=== PATIENT | female | born 1985 | race African-American/Black ===

== ENCOUNTER 2017-05-28 21:30 | Inpatient (IN) | payer OTHER ==
[~2017-05-28] VITALS: Ht 167.6 cm; Wt 77.1 kg
[~2017-05-28 21:30] MED LIST: COMBIVIR; HIV MEDS; NORVIR; PREN-385 PO; REYTAZ
[2017-05-28] MEDS ORDERED: LACTATED RINGERS 1,000 ML IV SCH (21:47)
[2017-05-28] MEDS ORDERED: NALBUPHINE 10 MG/ML AMP IVP PRN (21:50)
[2017-05-28] MEDS ORDERED: PROMETHAZINE 25 MG/ML VIAL IVP PRN (21:50)
[2017-05-28 22:00] VITALS: BP 137/85
[2017-05-28] MEDS: TERBUTALINE 1 MG/ML VIAL SUBQ SCH ×2 (22:05→22:43)
[2017-05-28] MEDS ORDERED: TERBUTALINE 1 MG/ML VIAL SUBQ ONE (22:08)
[2017-05-28] MEDS ORDERED: AMPICILLIN 2,000 MG in NACL 0.9% 100 ML IV ONE (22:45)
[2017-05-28 22:50] LABS: HIV RAPID SCREEN REACTIVE (NON REACTIV)
[2017-05-28 22:56] LABS: ALBUMIN 2.4 g/dL (3.4-5.0); CALCIUM 8.1 mg/dL (8.5-10.1); CARBON DIOXIDE 24.5 mmol/L (21-32); CREATININE 0.7 mg/dL (0.6-1.3); TOTAL BILIRUBIN 0.7 mg/dL (0.0-1.0); TOTAL PROTEIN, SERUM 7.3 g/dL (6.4-8.2)
[2017-05-28 23:00] LABS: POTASSIUM 2.5 mmol/L (3.5-5.1)
[2017-05-28 23:04] LABS: BILIRUBIN,URINE 1+ (NEGATIVE); BLOOD, URINE TRACE-I (NEGATIVE); LEUKOCYTE ESTERASE ,URINE NEGATIVE (NEGATIVE); NITRITE, URINE NEGATIVE (NEGATIVE); PROTEIN,URINE TRACE (NEGATIVE); UGLUCOSE NEGATIVE (NEGATIVE); UROBILINOGEN,URINE >=8.0 EU/dL (0.2 - 1)
[2017-05-28 23:10] LABS: AMPHETAMINE, URINE POS. ng/ml (NEG <=1000); BARBITURATE, URINE NEG. ng/ml (NEG <=200); BENZODIAZEPINE, URINE NEG. ng/mL (NEG <=200); CANNABINOID, URINE NEG. ng/mL (NEG <=50); COCAINE, URINE NEG. ng/mL (NEG <=300); OPIATE, URINE NEG. ng/mL (NEG <=2000); PHENCYCLIDINE SCREEN,URINE NEG. ng/mL (NEG <=25)
[2017-05-28] MEDS ORDERED: ceFAZolin 1,000 MG VIAL ONE (23:10)
[2017-05-28 23:18] LABS: APPEARANCE,URINE SLIGHTLY HAZY (CLEAR); COLOR,URINE YELLOW (YELLOW)
[2017-05-28 23:18] LABS: BASOPHILS # (AUTO) 0.1 K/uL (0.00-0.22); BASOPHILS % (AUTO) 1.6 % (0.0-2.0); EOSINOPHILS # (AUTO) 0.4 K/uL (0-0.4); EOSINOPHILS % (AUTO) 3.9 % (0.0-4.0); HEMATOCRIT 32.7 % (36-48); HEMOGLOBIN 10.8 g/dL (12.0-16.0); LYMPHOCYTES # (AUTO) 2.1 K/uL (2.5-16.5); LYMPHOCYTES % (AUTO) 23.7 % (20.5-51.1); MEAN CORPUSCULAR HEMOGLOBIN 30 pg (27-31); MEAN CORPUSCULAR HGB CONC 33 g/dL (33-37); MEAN CORPUSCULAR VOLUME 91 fL (80-94); MONOCYTES # (AUTO) 0.4 K/uL (0.8-1.0); MONOCYTES % (AUTO) 4.8 % (1.7-9.3); NEUTROPHILS # (AUTO) 6.1 K/uL (1.8-7.7); PLATELET COUNT (AUTO) 236 K/uL (140-450); RED BLOOD CELL COUNT(AUTO) 3.58 MIL/uL (4.20-5.40); RED CELL DISTRIBUTION WIDTH 11.5 % (11.6-13.7); WHITE BLOOD COUNT (AUTO) 9.1 K/uL (4.8-10.8)
[2017-05-28 23:23] LABS: BACTERIA,URINE OCCASSIONAL /HPF (None Seen); ICTOTEST NEGATIVE (NEGATIVE); RBC,URINE 0-5 (RARE) /HPF (0-5); WBC,URINE 0-5 (RARE) /HPF (0-5)
[2017-05-28 23:24] LABS: SQUAMOUS EPITHELIAL CELL,UR 0-3 (FEW) /LPF (0-3 (FEW))
[2017-05-28] MEDS ORDERED: KCL 20 MEQ/WATER INJ PREMIX 200 ML IV ONE (23:31)
[2017-05-28] MEDS ORDERED: METOCLOPRAMIDE 10 MG/2 ML INJ VIAL IVP PRN (23:35)
[2017-05-28 23:37] LABS: PARTIAL THROMBOPLASTIN TIME 26.5 secs (22-35.6); PROTHROMBIN TIME 10.4 secs (10.8-13.4)
[2017-05-28] MEDS ORDERED: OXYTOCIN 10 UNITS/ML VIAL ONE (23:38)
[2017-05-28] MEDS ORDERED: METOCLOPRAMIDE 10 MG/2 ML INJ VIAL ONE (23:38)
[2017-05-28] MEDS ORDERED: CITRIC ACID/SODIUM CITRATE 30 ML UDC ONE (23:58)
[2017-05-29] MEDS ORDERED: ceFAZolin 1,000 MG VIAL IVP ONE (00:02)
[2017-05-29] MEDS ORDERED: MIDAZOLAM 2 MG/2 ML VIAL ONE (00:05)
[2017-05-29] MEDS ORDERED: fentaNYL 0.05 MG/ML VIAL ONE (00:05)
[2017-05-29] MEDS ORDERED: KETAMINE 500 MG/5 ML VIAL ONE (00:05)
[2017-05-29] MEDS ORDERED: MORPHINE PRES FREE 10 MG/10 ML AMP IV ONE (00:06)
[2017-05-29] MEDS ORDERED: PREN-546 PO (00:39)
[2017-05-29] MEDS ORDERED: KETOROLAC 30 MG/ML VIAL IVP PRN (00:45)
[2017-05-29] MEDS ORDERED: ONDANSETRON 4 MG/2 ML VIAL IVP PRN (00:45)
[2017-05-29] MEDS ORDERED: diphenhydrAMINE 50 MG/ML VIAL ONE (00:52)
[2017-05-29] MEDS ORDERED: OXYTOCIN 20 UNITS/LR PREMIX 1,000 ML IV ONE ×2 (00:52→01:24)
[2017-05-29] MEDS: diphenhydrAMINE 50 MG/ML VIAL IVP PRN ×2 (01:25→18:15)
[2017-05-29] MEDS ORDERED: MEASLES, MUMPS, AND RUBELLA 1 VIAL SQVAC PRN (01:40)
[2017-05-29] MEDS ORDERED: METHYLERGONOVINE 0.2 MG/ML AMP IM PRN (01:40)
[2017-05-29] MEDS ORDERED: TRIMETHOBENZAMIDE 200 MG/2 ML SYR IM PRN (01:40)
[2017-05-29] MEDS ORDERED: HYDROcodone/APAP 5/325 MG 1 TAB TAB PO PRN (01:40)
[2017-05-29] MEDS ORDERED: TEMAZEPAM 15 MG CAP PO PRN (01:40)
[2017-05-29] MEDS ORDERED: METOCLOPRAMIDE 10 MG/2 ML INJ VIAL IVP ONE (03:50)
[2017-05-29] MEDS ORDERED: KCL 20 MEQ/WATER INJ PREMIX 200 ML IV SCH (04:00)
[2017-05-29 06:44] LABS: BASOPHILS % (AUTO) 0.2 % (0.0-2.0); EOSINOPHILS # (AUTO) 0.2 K/uL (0-0.4); EOSINOPHILS % (AUTO) 1.7 % (0.0-4.0); HEMATOCRIT 29.9 % (36-48); HEMOGLOBIN 9.9 g/dL (12.0-16.0); LYMPHOCYTES # (AUTO) 1.8 K/uL (2.5-16.5); LYMPHOCYTES % (AUTO) 18.6 % (20.5-51.1); MEAN CORPUSCULAR HEMOGLOBIN 30 pg (27-31); MEAN CORPUSCULAR HGB CONC 33 g/dL (33-37); MEAN CORPUSCULAR VOLUME 90 fL (80-94); MONOCYTES # (AUTO) 0.7 K/uL (0.8-1.0); MONOCYTES % (AUTO) 7.5 % (1.7-9.3); NEUTROPHILS # (AUTO) 6.9 K/uL (1.8-7.7); PLATELET COUNT (AUTO) 228 K/uL (140-450); RED BLOOD CELL COUNT(AUTO) 3.34 MIL/uL (4.20-5.40); RED CELL DISTRIBUTION WIDTH 11.6 % (11.6-13.7); WHITE BLOOD COUNT (AUTO) 9.6 K/uL (4.8-10.8)
--- NOTE | 2017-05-29 09:50 | NUR ---
PATIENT HAS BEEN SCREENED AND CATEGORIZED LOW NUTRITION RISK. PATIENT WILL BE SEEN WITHIN 7 DAYS OF ADMISSION. 06/04/[address] [place] [address]
[2017-05-29] MEDS: OXYTOCIN 20 UNITS/LR PREMIX 1,000 ML IV SCH ×2 (11:31→20:40)
[2017-05-29] MEDS: IBUPROFEN 800 MG TAB PO PRN (16:42)
[2017-05-29] MEDS: DOCUSATE SOD/SENNA 50/8.6 MG 1 TAB PO SCH (21:00)
[2017-05-29] MEDS ORDERED: ONDANSETRON 4 MG/2 ML VIAL ONE (23:45)
[2017-05-30] MEDS ORDERED: POTASSIUM CHLORIDE 10 MEQ TABER PO SCH (07:15)
[2017-05-30] MEDS ORDERED: PHENYTOIN 100 MG CAPER PO SCH (10:29)
[2017-05-30] MEDS: oxyCODONE/APAP 5/325 MG 1 TAB TAB PO PRN ×2 (11:38→20:17)
[2017-05-30 14:21] LABS: RAPID PLASMA REAGIN NON-REACTIVE (Non Reactiv)
[2017-05-30] MEDS: PHENYTOIN 100 MG CAPER PO SCH ×2 (16:48→21:59)
[2017-05-30] MEDS: DOCUSATE SOD/SENNA 50/8.6 MG 1 TAB PO SCH (20:18)
[2017-05-31] MEDS: oxyCODONE/APAP 5/325 MG 1 TAB TAB PO PRN ×2 (04:15→22:45)
[2017-05-31 07:05] LABS: ALBUMIN 1.8 g/dL (3.4-5.0); ANION GAP 7.9 (8-16); CALCIUM 7.7 mg/dL (8.5-10.1); CREATININE 0.6 mg/dL (0.6-1.3); TOTAL BILIRUBIN 0.5 mg/dL (0.0-1.0); TOTAL PROTEIN, SERUM 6.3 g/dL (6.4-8.2)
[2017-05-31 07:13] LABS: POTASSIUM 2.9 mmol/L (3.5-5.1)
[2017-05-31] MEDS ORDERED: PHENYTOIN 100 MG CAPER PO SCH (09:00)
[2017-05-31] MEDS: PHENYTOIN 100 MG CAPER PO SCH ×3 (09:03→18:14)
[2017-05-31] MEDS: POTASSIUM CHLORIDE 10 MEQ TABER PO SCH ×2 (09:03→21:34)
[2017-05-31] MEDS: SIMETHICONE 80 MG TAB.CHEW PO PRN (09:03)
[2017-05-31] MEDS: IBUPROFEN 800 MG TAB PO PRN ×2 (09:03→18:50)
[2017-05-31] MEDS: DOCUSATE SOD/SENNA 50/8.6 MG 1 TAB PO SCH (21:33)
[2017-06-01] MEDS: POTASSIUM CHLORIDE 10 MEQ TABER PO SCH ×2 (09:25→21:06)
[2017-06-01] MEDS: PHENYTOIN 100 MG CAPER PO SCH ×3 (09:26→17:56)
[2017-06-01] MEDS: SIMETHICONE 80 MG TAB.CHEW PO PRN (09:28)
[2017-06-01] MEDS: oxyCODONE/APAP 5/325 MG 1 TAB TAB PO PRN ×2 (09:30→23:09)
--- NOTE | 2017-06-01 16:10 | NUR ---
SS NOTE: I SPOKE WITH PT BEDSIDE. PT STATED THAT SHE WILL STAY WITH HER BOYFRIEND UPON DISCHARGE. I PROVIDED PT WITH HOMELESS/COMMUNITY RESOURCES AND SUBSTANCE ABUSE RESOURCES. PT INQUIRED ABOUT THE STATUS OF HER BABY AND I PROVIDED HER WITH [facility], MIGUE MADERA'S CONTACT INFORMATION ([phone]).
[2017-06-01] MEDS: DOCUSATE SOD/SENNA 50/8.6 MG 1 TAB PO SCH (20:57)
[2017-06-02] MEDS: oxyCODONE/APAP 5/325 MG 1 TAB TAB PO PRN (04:10)
[2017-06-02] MEDS: IBUPROFEN 800 MG TAB PO PRN (07:56)
[2017-06-02] MEDS: PHENYTOIN 100 MG CAPER PO SCH (07:56)
[2017-06-02] MEDS: POTASSIUM CHLORIDE 10 MEQ TABER PO SCH (07:57)
--- NOTE | 2017-06-02 10:02 | NUR ---
SS NOTE: I LEFT A MESSAGE FOR MIGUE MADERA FROM [facility] ([phone]) WITH JAH FROM THEIR OFFICE TO FOLLOW UP REGARDING PT'S STATUS. JAH STATED THAT SHE WILL ALSO GIVE THIS MESSAGE TO THEIR NOZZLEMAN SINCE MIGUE IS CURRENTLY IN COURT.
[2017-06-02 10:23] LABS: CD4 HELPER ABSOLUTE 622 /uL (359 - 1519)
[2017-06-02 10:24] LABS: CD4 POSITIVE LYMPH % 38.9 % (30.8 - 58.5); CD8 POSITIVE LYMPH % 44.1 % (12.0 - 35.5); CD8 SUPPRESSOR ABSOLUTE 706 /uL (109 - 897); MEAN CORPUSCULAR HEMOGLOBIN 29.2 pg (27 - 40); MEAN CORPUSCULAR HGB CONC 32.3 g/dL (32.0 - 36.0); MEAN CORPUSCULAR VOLUME 90 fL (80 - 98)
[2017-06-02 10:25] LABS: BASOPHILS % 0 % (0 - 3); EOSINOPHILS # 0.4 x10E3/uL (0.0 - 0.4); EOSINOPHILS % 4 % (0 - 7); LYMPHOCYTES # 1.6 x10E3/uL (0.7 - 4.5); LYMPHOCYTES % 19 % (14 - 46); MONOCYTES # 0.6 x10E3/uL (0.1 - 1.0); MONOCYTES % 8 % (4 - 13); NEUTROPHILS # 5.7 x10E3/uL (1.8 - 7.8)
[2017-06-02] MEDS ORDERED: PHEN100C3 PO (11:04)
[2017-06-02 14:31] LABS: HIV 1/0/2 ABS, QUAL Reactive (Non Reactiv)
--- NOTE | 2017-06-07 14:40 | NUR ---
LATE ENTRY FOR TUESDAY,06/03/17. CALLED VASQUEZ FROM [place] BECAUSE A RECEIVED PAPER WORK ON HE PATIENT. I CALLED VASQUEZ AND ASKED WHAT SHE NEEDED FOR THIS PATIENT . SHE SAID SHE JUST GOT THIS PATIENT AND WOULD CALL BACK ON TUESDAY.
--- NOTE | 2017-06-07 15:28 | NUR ---
FAXED RETRO NOTES FOR 05/31 TO 06/02 TO [facility] INCLUDING OPERATIVE REPORT AND ID CONSULT TO [facility] [phone] PHONE [phone] X [phone] Sharma.
== END 2017-06-02 11:45 | disposition home or self-care (01) | DRG 540 ==
LOC: MLD 21:30 → MFCC 05-29 03:50
PROVIDERS: ADMIT Obstetrics & Gynecology; ATTEND Obstetrics & Gynecology
PROC: 10D00Z1 Extraction of Products of Conception, Low, Open Approach (ICD-10-PCS; principal; 2017-05-28 23:30)
DX: O34.211 Maternal care for low transverse scar from previous cesarean delivery (principal); O99.354 Diseases of the nervous system complicating childbirth; O98.72 Human immunodeficiency virus [HIV] disease complicating childbirth; O75.89 Other specified complications of labor and delivery; O99.02 Anemia complicating childbirth; E87.6 Hypokalemia; G40.909 Epilepsy, unspecified, not intractable, without status epilepticus; Z59.0 Homelessness; Z91.010 Allergy to peanuts; Z3A.38 38 weeks gestation of pregnancy; Z37.0 Single live birth; Z23 Encounter for immunization; Z91.14 Patient's other noncompliance with medication regimen
CPT/HCPCS: 36415; 51702; 76805; 80053; 80185; 80305; 81001; 84132; 85025; 85379; 85384; 85610; 85730; 86360; 86592; 86702; 86762; 86886; 86900; 86901; 87340; 87536; 87653-90; J0690; J1200; J2250; J2270; J2405; J2590; J2765; J3010; J3105; J3480; J7120; Q0092

== ENCOUNTER 2021-07-03 20:49 | Emergency (ER) | payer OTHER ==
[~2021-07-03] VITALS: Ht 167.6 cm; Wt 112.9 kg
[~2021-07-03 20:49] MED LIST changes: +PHEN100C3 PO; +PREN-546 PO
[2021-07-03 21:11] VITALS: BP 133/78
--- NOTE | 2021-07-03 21:11 | NUR ---
TO BED AMBULATORY
[2021-07-03] MEDS ORDERED: DOXY-487 PO (21:56)
[2021-07-03 22:00] VITALS: BP 133/78
--- NOTE | 2021-07-03 22:00 | NUR ---
ERMD ASSESSED, TREATED, AND D/C PATIENT. NO NURSING INTERVENTIONS NEEDED. Patient discharged with v/s stable. Written and verbal after care instructions given and explained. Patient alert, oriented and verbalized understanding of instructions. Ambulatory with steady gait. All questions addressed prior to discharge. ID band removed. Patient advised to follow up with PMD. Rx of DOXYCYCLINE HYCLATE given. Patient educated on indication of medication including possible reaction and side effects. Opportunity to ask questions provided and answered.
== END 2021-07-03 22:00 | disposition home or self-care (01) ==
LOC: MED 20:49
DX: L66.2 Folliculitis decalvans (principal); J45.909 Unspecified asthma, uncomplicated; F17.210 Nicotine dependence, cigarettes, uncomplicated
CPT/HCPCS: 99283

== ENCOUNTER 2024-05-23 16:21 | Emergency (ER) | payer OTHER ==
[~2024-05-23] VITALS: Ht 167.6 cm; Wt 132.9 kg
[~2024-05-23 16:21] MED LIST changes: +DOXY-487 PO
[2024-05-23 16:44] VITALS: BP 107/87; PULSE 98; RESP 18; TEMP 97.8; O2SAT 100
[2024-05-23] MEDS ORDERED: METH1ADH21 TP (17:24)
[2024-05-23] MEDS ORDERED: CYCL-711 PO (17:24)
[2024-05-23] MEDS ORDERED: NAPR-1704 PO (17:24)
[2024-05-23] MEDS: KETOROLAC 30 MG/ML VIAL IM ONE (17:40)
[2024-05-23 17:41] VITALS: BP 107/87; PULSE 98; RESP 18; TEMP 97.8; O2SAT 100
== END 2024-05-23 17:42 | disposition home or self-care (01) ==
LOC: MED 16:21
DX: M62.830 Muscle spasm of back (principal); K21.9 Gastro-esophageal reflux disease without esophagitis; J45.909 Unspecified asthma, uncomplicated; Z86.69 Personal history of other diseases of the nervous system and sense organs; Z98.890 Other specified postprocedural states; Z79.1 Long term (current) use of non-steroidal anti-inflammatories (NSAID); Z79.2 Long term (current) use of antibiotics; Z79.899 Other long term (current) drug therapy; Z91.010 Allergy to peanuts
CPT/HCPCS: 81025; 96372; 99283; J1885

== ENCOUNTER 2024-05-25 10:25 | Emergency (ER) | payer OTHER ==
[~2024-05-25] VITALS: Ht 167.6 cm; Wt 133.8 kg
[~2024-05-25 10:25] MED LIST changes: +CYCL-711 PO; +METH1ADH21 TP; +NAPR-1704 PO
[2024-05-25 10:44] VITALS: BP 131/88; PULSE 97; RESP 20; TEMP 98.4; O2SAT 100
[2024-05-25] MEDS: KETOROLAC 30 MG/ML VIAL IM ONE (11:47)
[2024-05-25] MEDS: LIDOCAINE 2% 1000 MG/50 ML VIAL INJ ONE (11:48)
[2024-05-25] MEDS ORDERED: LIDO1ADH54 TP (11:57)
== END 2024-05-25 12:06 | disposition home or self-care (01) ==
LOC: MED 10:25
DX: S16.1XXA Strain of muscle, fascia and tendon at neck level, initial encounter (principal); M62.838 Other muscle spasm; M25.512 Pain in left shoulder; J45.909 Unspecified asthma, uncomplicated; Z86.69 Personal history of other diseases of the nervous system and sense organs; Z79.899 Other long term (current) drug therapy; Z91.010 Allergy to peanuts; X50.0XXA Overexertion from strenuous movement or load, initial encounter; Y92.89 Other specified places as the place of occurrence of the external cause; Y93.89 Activity, other specified; Y99.8 Other external cause status
CPT/HCPCS: 20553; 96372; 99284; J1885; J2001